=== PATIENT | male | born 1980 | race Caucasian/White ===

== ENCOUNTER → 2020-06-12 09:30 | Outpatient (CLI) | payer SELFPAY ==
[2019-09-06 18:55] VITALS: BMI 28.8
== END ==
PROVIDERS: Referring Provider Nurse Practitioner; Visit Provider Nurse Practitioner
DX: L08.9 Local infection of the skin and subcutaneous tissue, unspecified (principal); B95.8 Unspecified staphylococcus as the cause of diseases classified elsewhere

== ENCOUNTER → 2020-07-09 22:02 | Outpatient (CLI) | payer SELFPAY ==
[2020-07-09 20:53] VITALS: BMI 28.0
== END ==
PROVIDERS: Referring Provider Nurse Practitioner; Visit Provider Nurse Practitioner
DX: L08.9 Local infection of the skin and subcutaneous tissue, unspecified (principal); B95.8 Unspecified staphylococcus as the cause of diseases classified elsewhere; E10.65 Type 1 diabetes mellitus with hyperglycemia
CPT/HCPCS: 87070; 87075; 87077; 87186; 87205